=== PATIENT | female | born 1995 | race African-American/Black ===

== ENCOUNTER 2024-05-13 08:57 | Emergency (ER) | payer SELFPAY ==
[~2024-05-13] VITALS: Ht 160 cm; Wt 65.8 kg
[2024-05-13 09:04] VITALS: O2SAT 97
[2024-05-13 11:31] VITALS: BP 117/77; PULSE 68; RESP 16; TEMP 98.7
== END 2024-05-13 11:44 | disposition home or self-care (01) ==
LOC: ER 09:08
DX: M79.674 Pain in right toe(s) (principal)
CPT/HCPCS: 73630; 81025; 99283

== ENCOUNTER 2025-03-20 02:04 | Emergency (ER) | payer MEDICAID ==
[~2025-03-20] VITALS: Ht 160 cm; Wt 78.0 kg
[2025-03-20 02:09] VITALS: TEMP 36.7
[2025-03-20] MEDS: METHYLPREDNISOLONE SOD SUCC 125MG/2ML (ACT-O-VIAL) IV STA (02:47)
[2025-03-20 02:55] LABS: BASOPHILS % 0.6 % (0.0-2.0); EOSINOPHILS % 4.7 % (0.0-5.0); HEMATOCRIT. 40.5 % (36.0-48.0); HEMOGLOBIN. 13.2 g/dL (12.0-16.0); MEAN CORPUSCULAR HEMOGLOBIN 27.5 pg (28.0-32.0); MEAN CORPUSCULAR HGB CONC 32.5 g/dL (31.0-37.0); MEAN CORPUSCULAR VOLUME 84.7 fL (81.0-99.0); MEAN PLATELET VOLUME 8.6 fl (7.4-10.4); MONOCYTES % 6.6 % (2.0-8.0); NEUTROPHILS % 54.1 % (40.0-76.0); PLATELET 269 x1000/uL (130-400); RED BLOOD CELL COUNT 4.78 mill/uL (4.2-5.4); RED CELL DISTRIBUTION WIDTH 12.7 % (11.6-14.6)
[2025-03-20 03:00] LABS: CHLORIDE 107 mEq/L (98-107); POTASSIUM 3.7 mEq/L (3.5-5.1); SODIUM 142 mEq/L (136-145)
[2025-03-20 03:01] LABS: CALCIUM 9.5 mg/dL (8.7-10.4); CARBON DIOXIDE 26 mEq/L (21-32)
[2025-03-20 03:05] LABS: D-DIMER < 0.19 mg/L FEU (<0.50); PARTIAL THROMBOPLASTIN TIME 25.8 sec (23.4-31.0); PROTHROMBIN TIME 10.5 sec (9.6-11.0)
[2025-03-20 03:06] LABS: CREATININE 0.9 mg/dL (0.6-1.0); GLUCOSE 112 mg/dL (70-105); UREA NITROGEN BLOOD 15 mg/dL (9-23)
[2025-03-20 03:12] LABS: TROPONIN I HIGH SENSITIVITY < 4 ng/L (3.0-34)
[2025-03-20 03:47] VITALS: PULSE 70; RESP 20; O2SAT 97
[2025-03-20] MEDS: ALBUTEROL (0.083%) 2.5MG/3ML NEB HHN STA (03:47)
[2025-03-20] MEDS: SODIUM CHLORIDE 0.9% 1,000 ML IV ONE (04:50)
[2025-03-20] MEDS ORDERED: ACET-2708 MT (05:33)
[2025-03-20] MEDS ORDERED: ALBU90AE INH (05:33)
[2025-03-20 05:46] VITALS: BP 118/79; PULSE 96; RESP 14; O2SAT 94
== END 2025-03-20 06:00 | disposition home or self-care (01) ==
LOC: ER 02:04
DX: J98.01 Acute bronchospasm (principal); Z88.6 Allergy status to analgesic agent; Z79.899 Other long term (current) drug therapy
CPT/HCPCS: 80048; 83880; 85025; 85379; 85610; 85730; 86850; 86900; 86901; 84484; 36415; 71045; 94640; 93005; 96361; 96374; 99285; J2919; Z7610 ×3; J7030; 94070; 94760; 98960